=== PATIENT | female | born 1970 | race African-American/Black ===

== ENCOUNTER 2019-07-09 18:34 | Emergency (ER) | payer SELFPAY ==
[2019-07-09] MEDS ORDERED: Ibuprofen 200 MG TAB ONE (18:59)
[2019-07-09] MEDS ORDERED: Acetaminophen 500 MG TAB ONE (18:59)
== END 2019-07-09 19:07 | disposition home or self-care (01) ==
LOC: ERS 18:34
DX: J11.1 Influenza due to unidentified influenza virus with other respiratory manifestations (principal); E11.9 Type 2 diabetes mellitus without complications; I10 Essential (primary) hypertension; Z79.84 Long term (current) use of oral hypoglycemic drugs; Z79.899 Other long term (current) drug therapy
CPT/HCPCS: 99283